=== PATIENT | male | born 1945 | race Caucasian/White ===

== ENCOUNTER 2022-12-28 08:56 | Outpatient (OUT) | payer MEDICARE, SELFPAY ==
--- NOTE | 2022-12-28 10:55 | CA_ITS ---
Patient: ABIODUN KEYES Exam Date: 12/28/2022 : 1945 Gender:M Ordering : WILLIAM GRAJEDA Admission #: [id number] Family : Order #: [id number] CLICK HERE TO VIEW EXAM ECHOCARDIOGRAM REPORT PROCEDURE: CA ECHO DOPPLER COMPLETE INDICATIONS: Pacing-induced Cardiomyopathy COMPARISON: None. DESCRIPTION: COMPLETE ECHOCARDIOGRAM Real-time transthoracic echocardiography with 2D, M-mode, spectral and color flow Doppler performed. QUALITY: Technical quality was good. LEFT VENTRICLE: Normal chamber size. Normal left ventricular wall thickness. Global left ventricular systolic function is normal. LV EF: Calculated left ventricular ejection fraction is 59% DIASTOLIC: Grade 1 diastolic dysfunction. ATRIAL SEPTUM: LEFT ATRIUM: Normal chamber size. RIGHT ATRIUM: Mild dilatation. RIGHT VENTRICLE: Normal chamber size. Normal right ventricular systolic function. Pacer wire present. TRICUSPID VALVE: Normal mobility and thickness. No stenosis with mild regurgitation. Mild pulmonary hypertension. RVSP 43 mmHg MITRAL VALVE: Normal mobility and thickness. No evidence of mitral valve stenosis. There is no mitral annular calcification. No mitral regurgitation. AORTIC VALVE: Normal trileaflet appearance. No visible sclerosis. Normal leaflet mobility. No evidence of aortic valve stenosis. No aortic regurgitation. AORTIC ROOT: Mildly dilated. Measuring 4.2cm. The ascending aorta is normal in size measuring 3.4 cm. PULMONIC VALVE: Normal thickness and mobility. No stenosis. Trivial regurgitation. PERICARDIUM: No evidence of pericardial effusion. IVC: Collapses with inspirations. Normal size. PLEURA: CONCLUSION: 1. Left ventricular systolic function is normal. LVEF is 55 to 60%. 2. Mild diastolic dysfunction. 3. Normal right ventricular size and systolic function. 4. No significant valvular dysfunction. 5. Mildly elevated right-sided pressures. RVSP is 43 mmHg. 6. Mildly dilated aortic root, measuring 4.2 cm. Adult Echocardiography Procedure Report Left Ventricle LVEDD (3.7 - 5.6 cm): 4.98 cm LVESD (2.2 - 4.0 cm): 3.79 cm LVIVS thickness (0.6 - 1.2 cm): 1.02 cm LVPW thickness (0.5 - 1.0 cm): 1.03 cm e': 0.08 m/s E - e': 7.25 LVOT Max Gradient: 4.46 mm[Hg] LVOT Area (cm2): 1.06 m/s Peak Velocity (LVOT): 1.06 m/s Mean Velocity (LVOT): 0.63 m/s LVOT Diameter 2.48 cm Left Ventricular Ejection Fraction: 59.49 % Left Atrium LA Volume Index (2D A2C): 34.38 ml/m2 Left Atrium Systolic Dimension: 4.40 cm Mitral Valve MV E to A Ratio: 0.57 Mitral Valve A-Wave Peak Velocity: 0.98 m/s Mitral Valve E-Wave Peak Velocity: 0.56 m/s Right Ventricle Aorta AO Root Diam: 4.17 cm Ascending Ao Diam: 3.38 cm Aortic Valve AoV Area (Peak Ankit): 3.97 cm2, 3.97 cm2 AoV Area (VTI): 3.91 cm2, 3.91 cm2 Peak Velocity(Antegrade Flow): 1.28 m/s Peak Gradient(Antegrade Flow): 6.56 mm[Hg] Mean Velocity(Antegrade Flow): 0.88 m/s Mean Gradient(Antegrade Flow): 3.54 mm[Hg] Velocity Time Integral: 27.72 cm Tricuspid Valve Peak Velocity (Regurgitant Flow): 3.18 m/s, 2.78 m/s, 3.02 m/s Pulmonic Valve Mean Gradient: 2.17 mm[Hg], 2.04 mm[Hg] Mean Velocity: 0.67 m/s, 0.68 m/s Peak Velocity: 1.08 m/s Peak Gradient: 5.59 mm[Hg], 3.83 mm[Hg] Right Atrium Dictated by: Topher Lucas M.D. on 12/28/2022 at 19:47 Approved by: Topher Lucas M.D. on 12/28/2022 at 19:50
== END 2022-12-28 08:57 | disposition home or self-care (01) ==
PROVIDERS: PCP Family Medicine; Visit Provider Nurse Practitioner
DX: I42.9 Cardiomyopathy, unspecified (principal); T82.897A Other specified complication of cardiac prosthetic devices, implants and grafts, initial encounter
CPT/HCPCS: 93306

== ENCOUNTER 2023-12-13 07:45 | Outpatient (OUT) | payer MEDICARE, SELFPAY ==
--- OUTSIDE RECORDS SUMMARY | 2023-12-13 07:48 | XMS_ITS | CCD ---
Author Organization [facility] Care Team Providers Care Bundle Cutter Name Role Phone MAKENNA STAPLES Attending Unavailable MAKENNA STAPLES Admitting Unavailable HOUSE, NIKITA Referring Unavailable HOUSE, NIKITA Primary Care Unavailable HOUSE, DR COLLADO Attending Unavailable HOUSE, DR COLLADO Consulting Unavailable HOUSE, DR COLLADO Primary Care Unavailable HOUSE, DR COLLADO Admitting Unavailable ANGELA, MD Edward Mckinney Attending Unavailable ANGELA, MD Edward Mckinney Attending Unavailable HOUSE, NIKITA Lopez Primary Care Unavailable HOUSE, DO NIKITA P Admitting Unavailable HOUSE, DO NIKITA Lopez Attending Unavailable HOUSE, DO NIKITA Lopez Attending Unavailable HOUSE, NIKITA P Primary Care Unavailable Chucky Cantrell MD Attending Unavailable HOUSE, NIKITA Lopez Primary Care Unavailable RUMA CABRERA Attending Unavailable RUMA CABRERA Attending Unavailable LUIS FOOTE Referring Unavailable Unavailable Primary Care Provider UnavailBRIANNA Arshad Attending Unavailable Allergies Allergy Classification Reported Allergen(s) Allergy Type Date of Onset Reaction(s) Facility (1 source) No Known Medication Allergies; Translations: [No Known Medication Allergies] Propensity to adverse reactions (disorder) [facility] Repository Medications Current Medications Medication Drug Class(es) Dates Sig (Normalized) Sig (Original) amLODIPine 2.5 mg oral tablet (3 sources) Dihydropyridine Calcium Channel Abhilash amLODIPine (Norvasc) 2.5 MG tablet Take by mouth Daily. Active atorvastatin 10 mg oral tablet (3 sources) HMG-CoA Reductase Inhibitor take 1 tablet by mouth in the morning atorvastatin (Lipitor) 10 MG tablet Take 10 mg by mouth in the morning. Active fluorouracil 50 mg/ml topical cream (2 sources) Nucleoside Metabolic Inhibitor Start: 12-11-2023 fluorouracil (Efudex) 5 % cream Indications: Actinic keratosis Apply to scalp x 14 days 40 g 12/11/2023 Active Start: 12-11-2023 fluorouracil ( Efudex) 5 % cream Indications: Actinic keratosis Apply to scalp x 14 days 40 g 12/11/2023 Active labetalol hydrochloride 100 mg oral tablet (3 sources) beta-Adrenergic Abhilash labetalo l (Normodyne) 100 MG tablet Take by mouth 2 (two) times a day. Active ramipril 1.25 mg oral capsule (3 sources) Angiotensin Converting Enzyme Inhibitor take 1 capsule by mouth in the morning ramipril (Altace) 1.25 MG capsule Take 1.25 mg by mouth in the morning. Active Rivaroxaban (Xarelto) 1 MG/ML reconstituted suspension (3 sources) Rivaroxaban (Xar elto) 1 MG/ML reconstituted suspension Take by mouth. Active Problems Problem Classification Problem Date Documented Date Episodic/Chronic Conduction disorders (2 sources) Encounter for adjustment and management of automatic implantable cardiac defibrillator; Translations: [Encounter for adjustment and management of automatic implantable cardiac defibrillator] Onset: 05-29-2023 Chronic Coronary atherosclerosis and other heart disease (1 source) Atherosclerotic heart disease of [place] coronary artery without angina pectoris; Translations: [ASHD [place] CA W/O ANGINA PECTORIS] Onset: 11-29-2021 Chronic Disorders of lipid metabolism (1 source) Hyperlipidemia, unspecified; Translations: [HYPERLIPIDEMIA UNSPECIFIED] Onset: 11-29-2021 Chronic Essential hypertension (4 sources) Essential (primary) hypertension; Translations: [ESSENTIAL PRIMARY HYPERTENSION] Onset: 11-26-2021 Chronic Hyperplasia of prostate (1 source) Benign prostatic hyperplasia without lower urinary tract symptoms; Translations: [BENIGN PROSTATIC HYPRPLASIA WO LUTS] Onset: 11-29-2021 Chronic Neoplasms of unspecified nature or uncertain behavior (2 sources) Neoplastic disease; Translations: [Neoplasm of unspecified behavior of bone, soft tissue, and skin] 12-11-2023 Episodic Other skin disorders (2 sources) Actinic keratosis; Translations: [Actinic keratosis] 12-11-2023 Episodic Other skin disorders (2 sources) Seborrheic keratosis; Translations: [Other seborrheic keratosis] 12-11-2023 Episodic Other skin disorders (2 sources) Lentiginosis; Translations: [Other melanin hyperpigmentation] 12-11-2023 Episodic Results Test Name Value Interpretation Reference Range Facility No Panel Informationon 12-10 Type of biopsy: tangential Informed consent: discussed and consent obtained Informed consent comment: The risks and benefits of the biopsy were discussed. Risks include but are not limited to bleeding, infection, scarring, pain, and nerve damage. An opportunity to ask questions prior to the procedure was permitted and all questions were answered. Patient was prepped and draped in usual sterile fashion: area cleansed with alcohol. Anesthesia: the lesion was anesthetized in a standard fashion Anesthetic: 1% lidocaine w/ epinephrine 1-100,000 buffered w/ 8.4% NaHCO3 Instrument used: DermaBlade Hemostasis achieved with: electrodesiccation Outcome: patient tolerated procedure well Outcome comment: The specimen was placed in a prelabeled formalin container to be sent for pathology Post-procedure details: sterile dressing applied and wound care instructions given Post-procedure details comment: Emphasized need to contact clinic for any signs of infection, uncontrollable bleeding, or complications. Dressing type: bandage Additional details: Photo taken yes Amount of lidocaine used: 1 cc [facility] Healthcare Office Visiton 12-06-2023 Follow-up visit [id number] Sonal Elizondo 1945 M Date Provider Department Center 12/06/2023 RUMA FRAZIER DEXTER [facility] Family History Problem Relation Age of Onset Hypertension Mother Hypertension Father Hypertension Sister Family Status - Relation Status Age at Mother Father Sister Level of Service:74675 PA OFFICE/OUTPATIENT ESTABLISHED MOD MDM 30 MIN Normal [facility] Coding Summaryon 10-23-2023 Coding Summary HTMLBase 64 YpcifmrtMKe4pGa+PGhlYWQ +UL7LLFVnK28kaKQupL1mJ4 NMTElOSywgQVBQTElOSyIgb iXjIE6trGRnYIDb IC8+QO8mQHPtSmaquRWxx5N 5jWV4T25ytb6aQTtzbOO3HN NdQaXkafakf5lbzJk0ERcoK mluOyBt JCUdzB56URP9kM69Jg82oDW dxTBlf1hxlUc4RxXdDWIcKW Y3bBlxKHtxp8DpEZDkV97kk EGyj1E7 VXGcrHvvyHNzVlLyxPQ4aI1 jRZzqlroeq6xzzcpxCed0mi 42tMTzf9K1rDP3L7ZqpaJ1S GJvbGQg YuvtzLKQjC8gyleza3ubizx bToDiUTQcDVs4GKk0VVIsyZ fvCzMiMJ01JZT4QQYeqeBdV 2FsLWFs fLnrEyW2t3P8Ot3AT3WGVng mA5EMSOHYZXdhaWZ+PC90cj 81K7XoKqoxZvk7ACWpNXO8x TY5gH9g KRQwZKvwy0G9eMP1P6MrpiI igy5om3vfHSRoJGkdR80gqL Joq1O0VWQdfUE9MPOjtFkoY iBzaG93 Oyc+MLUvmIzut6CqYdxjm4y he4erjPh1YrhoRLTikdUxyO qgHZR1c5UuIk5uWYRktGF6j LU9eS4r ImQkByU9IUrxM675BcVzbNF xNsgcA17jO9WygAH+PHRyPj p6GECklUxjHU0sH0RyAGZrg mctbGVm cGaoGK0dIXDlpoqmTHKwiW3 tZNKiQ7a1JfQqBvO1KNnxS4 JfOCDsfddhZr54nE2vShNoL gQ1PIrt E2JyboB6GXIqfHQfIHjeQUU 4Y52pg8G0JUWnGOBcCBX8tP Y5lJ4xsThmkujbkQSgeAbpv mVydGlj NRrbUFtxJ085PHGmnZyeHeQ vZGluZyBEYXRlOiAgMDgvMT MvMjAyNDwvdGQ+MWZlHIE3v WxlPSAn bPEvOBylPv6qoCvsyYczHP4 tIHTyvjrkZLZhrI0rZQOakD UycOipWI8mDMCnibxkf506G iAxMHB0 XMFmdQSkJ6PzyS0eShQqWPE sPCJrW9MrfASyBJjtK679PJ qvCqR7XIOykmFpY1FaVTEyl WduOiB0 l9C7Ps0Mv5WfqxmdK9TemVI zTmVgPhufZQk5R0EjJmqaqP I+UN22GKOdYE04WRc6AXC6v WxlPSdi NXTaY8VsuU8wZjEnMVBbZUS kOyc+PHRhYmxlIHdpZHRoPS pmUQTwVwXwoTnpRJ9rRr3iM GVyLWNv eSrqxUNjQrRdd2zbMAJmEEq jXA6pzSwlF9CjrAQ4BGPth3 f8Vw05K62tJ5HteAC+PGNvb BZ5qNW8 uR1rSfKyClD4QWymG684VbV gmWXmZtcii7csu0qziDd3Xh G9HINnwlJggVdnEHA8c9LkO b29M82q IHdpZHRoPSIxNSUiIHZhbGl vvz2qvK9hRp1+AQVazZE1xW Z2xA0iUkIjWsG1SQqhJ299Z nRvcCIv Nhkfa1lbs8kfrZm7DjNtQBG bvdLlnDmfOFK6x6CeIb53Y3 PfrOmxs0IlFva6ke93fTZkt 6Y0zSQ1 F1YbBQQbtdxkuWXdfHrwHG7 fDQGtrrpuQDWhyO3gPSUoY5 h3UqWsVbY6POuzH3SzhtG9P GJvbGQg PXImpVYQhF6jsatoh0uifbs fQfJkYMVkRFh2TAe3FKOzbG msNzHdVLT6HzC2JPP9cWZdz X8fgOui cyxpgV8lKht+FQT4kHXkcYG LPS1kNwnsnCR+FBCaAGK2sE gyVFqlITFxnW4uFPWmJ9f6V iAwLjA1 ZGsnH5HmeaS7DJGzuOUbPVY vzYBHkN0lfpgqj1cqbnzhRi OrFDMzMVz3XRo9WILuaNvrU iBsZWZ0 OnL2RJA7fKRnhU7yrXswqoh mbW4rSfv+HodipRpkWZP3FB u1U2ViTej3QZRdqIwaSI4ia GFkZGlu Pu6acElarVkiKJ5lUFSboxi kz110IfEti6pxQJKxmEUbIJ rwIZA1W78lr8X9WYBePYVbZ KC9tWJ4 gM3otXsqbbcbrKBxoNivdlV qcXvjPUdrFTksI196XGDhbN krDaUbHDt4H4SpLnp8YKKmj OohUB2b kLFtRHmoZr1vkNawsTklUD9 sQHNdznuwm628MbNqy9liWE VdfDKyVCukPER4I87bw7F0Z CMwMDAw WRO8wBJ3zV9tlOxgaxsnqYO mdDsgdmVydGljYWwtYWxpZ2 14NRJilVdlXhMohZk8K7GaQ yx2BYOe eXwgCC9obQPmNAtyPj5yuRw gqWgnTH8pKQGfnvkwl996Xh Tdx2bvKWBqsQCuKNopEES8B 56be0W9 EIYbQNXcPER0oCN3iR4fwAd nbjogbGVmdDsgdmVydGljYW weQJtuV414WILdlRceKlIvv GllbnQg WLhvRVw0X6DxSmbmtHL+PC9 3BMGwCD70iBEreKCwy1darN k7DvIfIAOiRWZ8qKoaYWttu 3JkZXIt D78dqKPwb1Q9ZWJsmOsefCA eWjOugEK8iA6vYWnptdrwg5 shyotvZeyks7ktbk50vC27X 29sIHdp ZHRoPSIzMCUiIHZhbGlnbj0 voL9eHn5+NODtbLI2dYY0iK 2vXSTeIjB9LDbrM417CuLja CIvPjxj r7fuv4uhdGm0TiV5JRGyffL kvGviVAZ0m8FiDf07V90sCH dpZHRoPSIyMCUiIHZhbGlnb u7rqD6e Ii8+OKZjoJU3tJZ7jX1fBdQ kXpU0HLdsS772VgZnpRQwNt glD66xT9RmkDB+KLLfCbo7X CBzdHls FY4lcHCqXUlkIc7qDEB3QfI wEoCdLMwdT4LoIBXqgxqiaa girMK2ERCkJPVtrK93Xh8an DogMTBw nIEYoS3kbeily0chlrvzNaH lZUPhRTe1KPf0LDWmbBulQq AaNSH4TuR5SIK8gGEccY1pf Glnbjog fJ4aA2MqUPCfveswQh32cG5 rJcSeQsG8SZmoTbx+UVVBQ0 rDKfUSE9gkYQzPUn6hHR8PC 0xBUzwv dGQ+MVJkDHL1bWqeGKnsETW pnT5pSRLeT5b0PyUrIhQ4BD scG6XwBVQlhxymYg39cE6iN iAwLjA1 SDvvD0RnqfW9ODLvhPXkKBm rISL8U04bd9I5ELBfCECnZT E7iLY7hD1zmSbwatfkeKNzg DsgdmVy gMlvLRosHVqjR600DVRnmWq wJpA7JvC4JhO7LVP7X4EqYl k4URLgxUoiSB2waWSuPDfsT s7rsAvt wNhvRQ7eTZMroanpTFFocY0 vXBTamLOluShrVO7tLRKxoe wha512YuUdNZB9GUYrbCDvK 7TikT3u BmZaVDPwNBWqX1MaxECzHMq dV235HQgvIqV6AOHqtmAuM6 SoHACukJmaSvC9d5X9Hz46L CBZZWFy czwvdGQ+CWMrWRM9wKuiCBi sDRRbpN2pBXAcM9h0YmAwLq Y2FTzlF4IfQVSyldfbOy12d U8aStPv RkO9XQnuA7SajyE6VQUajDL lJVdvYQH5H70kl6V3MORaNA MsQDF2dQT8gJ8mqUuixuqpw GVmdDsg ngJjnZcfCDweGLgiN774WXM zqUqxPh8XUBY2V5RbWvy9EK JdqPyjGA7pmACmBRxeDp4de WdodDog EO0uJUSnmcfmRROtyO0tZDG eqQOexVriZT3kCSNspayxk8 82NiUbJAD3PNYzzLEjN4Lvz Q0xRkWh DVLzVFVzJ2YhjPMrXApgA16 6VQytDnM1TQMtckQbT1XeIY KquZsiMmV2v2A7Ef8SOSpfd GQ+PC90 jv39U6TbTwejQfa1JXTuUXO 4tFZ7jY4aMCGgOLhlx1C1gL B4Z0AoqoHeqk1wk0oaJBEeX HcrU55t vZTsz7O6ILYycBQ1KKFraDk jVyUltE70Xbh+PGNvbGdyb3 NoQbzjb6ger9hxaYm7YdHjG SIgdmFs uXypRZW6q2JgKa99C32vEIu pZHRoPSIzMCUiIHZhbGlnbj 3hcD1zHr8+BCIqcFE2fUW1r X8qByUy NaD5MHdlG207VnIwhAGcRzu be9dwa5srnId8YmQuTSLbyl KsmVvdZFY0f0OjIl54B4Rcb Ryox0Gc Bed0qu24aIKax2O5uFH1Y8R wWQAhjemgqSHepOthDX5qFI IiwwyoWZUyaT5pGXVsW8n9C iAwLjA1 BUfiR1ChrxN1XOIalNMvYKD dlNGAzT8yvbjoa2synxinDm FiPFLhAJt9SIp9BKUcpEyyC iBsZWZ0 AgE0BXS5oADqbE9swHfmkrl gjX8xFdb+YFc7c4acvYRdER 9ghYN7DT99LL44uEAmw4Y5a AP5W1Dr FBOcxesxvisnzFI6WMDpXVM mzF29Qc2dkBasBa9iYZRoFA N0OQUkwGNvV1UvgG0aRiRvU DAwMDAw J1FawBXhRBhhK040XMftTfH 5XJKsrmWnY0PjNWNwsOusPn H1n8B3Jd8WNQ17TE28HB51v UEae6Q0 fZO4Q1KpSWCasazftayksOQ 5ZQUyGXBalL28Oe1yaEnhJb 5jTPXwMIB4OOIzwEAiA7Obe N4xCxTu VDWmTNEaJ0KcbXGdIPvqR87 2DMqzPrI1GXKunqOlD0BrPY NwcAlgQtX4z1R5Ci2ZDg93S Y33UK35 iAOvl7Q9dFF8L7EkEKQiwcl fpfojcOA3YNUbLJEjeG56Yb 5pnXiiHt3tMELvRYG0PYUxt HDxD4Zi vU9vHhSiJWIuIDIxE6DvhDP dPCouV414FGcpVgK8YZXkgg BaY5SrLMKrzRnyUkN5w6V5S j2WKSqg gth8R4KcWkwwpDI+LO04LRS xIQ11uCUtpIZxh8fmjVy3Xu LyOYZfRHQ6hLqpPBsli4PmQ SWfV09c bGF (more content not included)... Normal [facility] Reminder Messageson 10-09-19 Reminder Messages - From: NIKITA CAMERON DO To: [facility] Clinical Pool ([facility] [email or web address] Sent: 10/08/2023 15:40:18 EDT ! Show up: 10/08/2023 15:40:18 EDT Subject: Results Follow Up Actions: Call the patient with result(s) Due Date/Time: 10/09/2023 15:40:00 EDT Reminder Comments: looks good Results: Date Result Name Ind Value Ref Range 10/08/2023 14:22 Sodium Level 140.0 mmol/L (136.0 - 144.0) 10/08/2023 14:22 Potassium Level 4.0 mmol/L (3.6 - 5.1) 10/08/2023 14:22 Chloride Level 105 mmol/L (101 - 111) 10/08/2023 14:22 CO2 28 mmol/L (21 - 32) 10/08/2023 14:22 Anion Gap 11.0 mmol/L (5.0 - 19.0) 10/08/2023 14:22 Glucose Level 107.0 mg/dL (74.0 - 118.0) 10/08/2023 14:22 BUN 20 mg/dL (8 - 26) 10/08/2023 14:22 Creatinine Level 1.01 mg/dL (0.90 - 1.30) 10/08/2023 14:22 BUN/Creat Ratio ((H)) 19.8 (4.6 - 16.2) 10/08/2023 14:22 eGFR AA >60 mL/min/1.73m2 10/08/2023 14:22 eGFR Non AA >60 mL/min/1.73m2 10/08/2023 14:22 Calcium Level 9.1 mg/dL (8.9 - 10.3) 10/08/2023 14:22 Bili Total 1.1 mg/dL (0.3 - 1.2) 10/08/2023 14:22 Alk Phos 53 IU/L (32 - 91) 10/08/2023 14:22 AST/SGOT 17 IU/L (15 - 41) 10/08/2023 14:22 ALT/SGPT 21.0 IU/L (17.0 - 63.0) 10/08/2023 14:22 Protein Total 7.7 gm/dL (6.5 - 8.1) 10/08/2023 14:22 Albumin Level 4.6 gm/dL (3.5 - 5.0) 10/08/2023 14:22 Globulin 3.1 gm/dL (1.5 - 4.3) 10/08/2023 14:22 A/G Ratio 1.4 (1.4 - 2.6) 10/08/2023 14:22 Osmolality 282 mOsm/L 10/08/2023 14:22 PSA Screen 3.24 ng/mL (0.00 - 4.00) 10/08/2023 14:22 WBC 8.1 x103/mcL (3.5 - 10.5) 10/08/2023 14:22 RBC ((H)) 5.52 x106/mcL (3.70 - 5.30) 10/08/2023 14:22 Hgb 16.3 gm/dL (11.8 - 17.7) 10/08/2023 14:22 Hct 48.7 % (34.8 - 51.9) 10/08/2023 14:22 MCV 88 fL (81 - 100) 10/08/2023 14:22 MCH 30 pg (24 - 34) 10/08/2023 14:22 MCHC 33 gm/dL (26 - 37) 10/08/2023 14:22 RDW 14.4 % (11.5 - 15.0) 10/08/2023 14:22 Platelet 303 x103/mcL (138 - 427) 10/08/2023 14:22 MPV 7.5 fL (6.3 - 10.2) 10/08/2023 14:22 Auto Neut % 68 % (44 - 88) 10/08/2023 14:22 Auto Lymph % 20 % (14 - 48) 10/08/2023 14:22 Auto [place] % 10 % (1 - 12) 10/08/2023 14:22 Auto Eos % 2.4 % (0.9 - 4.0) 10/08/2023 14:22 Auto Baso % 0.4 % (0.2 - 2.0) 10/08/2023 14:22 Neut Abs# 5.5 x103/mcL (1.5 - 9.2) 10/08/2023 14:22 Lymph Abs# 1.6 x103/mcL (1.3 - 2.9) 10/08/2023 14:22 [place] Abs# 0.8 x103/mcL (0.0 - 0.8) 10/08/2023 14:22 Eos Abs# 0.2 x103/mcL (0.0 - 0.4) 10/08/2023 14:22 Baso Abs# 0.0 x103/mcL (0.0 - 0.2) pt notified Normal [facility] .Auto Diff 1on 10-08-2023 Auto [place] % 10 % Normal 1-12 [facility] Comment on above: Performed By: #### 7 [id number] #### [facility] (DEFAULT) [address] [place] [address] Baso Abs# 0.0 x10 Normal 0.0-0.2 [facility] Comment on above: Performed By: #### 7 [id number], [id number], [id number], [id number] #### [facility] (DEFAULT) [address] [place] [address] Basophils/100 WBC (Bld) 0.4 % Normal 0.2-2.0 [facility] Comment on above: Performed By: #### 7 [id number], [id number], [id number] #### [facility] (DEFAULT) [address] [place] [address] Eos Abs# 0.2 x10 Normal 0.0-0.4 [facility] Comment on above: Performed By: #### 7 [id number], [id number], [id number], [id number] #### [facility] (DEFAULT) [address] [place] [address] 89628 Eosinophils/100 WBC (Bld) 2.4 % Normal 0.9-4.0 [facility] Comment on above: Performed By: #### 7 [id number], [id number], [id number], [id number] #### [facility] (DEFAULT) [address] [place] [address] Lymph Abs# 1.6 x10 Normal 1.3-2.9 [facility] Comment on above: Performed By: #### 7 [id number], [id number], [id number], [id number] #### [facility] (DEFAULT) [address] [place] [address] Lymphocytes/100 WBC (Bld) 20 % Normal 14-48 [facility] Comment on above: Performed By: #### 7 [id number], [id number], [id number], [id number] #### [facility] (DEFAULT) [address] [place] [address] [place] Abs# 0.8 x10 Normal 0.0-0.8 [facility] Comment on above: Performed By: #### 7 [id number], [id number], [id number], [id number] #### [facility] (DEFAULT) [address] [place] [address] Neut Abs# 5.5 x10 Normal 1.5-9.2 [facility] Comment on above: Performed By: #### 7 [id number], [id number], [id number], [id number] #### [facility] (DEFAULT) [address] [place] [address] Neutrophils/100 WBC (Bld) 68 % Normal 44-88 [facility] Comment on above: Performed By: #### 7 [id number], [id number], [id number], [id number] #### [facility] (DEFAULT) [address] [place] [address] CBC w/ Auto Diffon 4 Erythrocyte distribution width (RBC) [Ratio] 14.4 % Normal 11.5-15.0 [facility] Comment on above: Performed By: #### 7 [id number], [id number], [id number], [id number] #### [facility] (DEFAULT) [address] [place] [address] Hematocrit (Bld) [Volume fraction] 48.7 % Normal 34.8-51.9 [facility] Comment on above: Performed By: #### 7 [id number], [id number], [id number], [id number] #### [facility] (DEFAULT) [address] [place] [address] Hemoglobin (Bld) [Mass/Vol] 16.3 g/dL Normal 11.8-17.7 [facility] Comment on above: Performed By: #### 7 [id number], [id number], [id number], [id number] #### [facility] (DEFAULT) [address] [place] [address] Man Diff? Auto Invalid Interpretation Code [facility] Comment on above: Performed By: #### 7 [id number], [id number], [id number], [id number] #### [facility] (DEFAULT) [address] [place] [address]17 MCH (RBC) [Entitic mass] 30 pg Normal 24-34 [facility] Comment on above: Performed By: #### 7 [id number], [id number], [id number], [id number] #### [facility] (DEFAULT) [address] [place] [address] 98968 MCHC (RBC) [Mass/Vol] 33 g/dL Normal 26-37 [facility] Comment on above: Performed By: #### 7 [id number], [id number], [id number], [id number] #### [facility] (DEFAULT) [address] [place] [address] 78975 MCV (RBC) [Entitic vol] 88 fL Normal 81-100 [facility] Comment on above: Performed By: #### 7 [id number], [id number], [id number], [id number] #### [facility] (DEFAULT) [address] [place] [address] Platelet 303 x10 Normal 138-427 [facility] Comment on above: Performed By: #### 7 [id number], [id number], [id number], [id number] #### [facility] (DEFAULT) [address] [place] [address] 20390 Platelet mean volume (Bld) [Entitic vol] 7.5 fL Normal 6.3-10.2 [facility] Comment on above: Performed By: #### 7 [id number], [id number], [id number], [id number] #### [facility] (DEFAULT) [address] [place] [address] 27290 RBC 5.52 x10 High 3.70-5.30 [facility] Comment on above: Performed By: #### 7 [id number], [id number], [id number], [id number] #### [facility] (DEFAULT) [address] [place] [address] 31898 WBC 8.1 x10 Normal 3.5-10.5 [facility] Comment on above: Performed By: #### 7 356310, [id number], [id number], [id number] #### [facility] (DEFAULT) [address] [place] [address] CMP Standardon 10-08-2023 eGFR Non AA >60 Invalid Interpretation Code [facility] Comment on above: Performed By: #### 7 [id number], [id number], [id number], [id number] #### [facility] (DEFAULT) [address] [place] [address] eGFR AA >60 Invalid Interpretation Code [facility] Comment on above: Performed By: #### 7 [id number], [id number], [id number], [id number] #### [facility] (DEFAULT) [address] [place] [address] Albumin [Mass/Vol] 4.6 g/dL Normal 3.5-5.0 [facility] Comment on above: Performed By: #### 7 607907, [id number], [id number], 7494821 #### [facility] (DEFAULT) [address] [place] [address] Albumin/Globulin [Mass ratio] 1.4 {ratio} Normal 1.4-2.6 [facility] Comment on above: Performed By: #### 7 574639, [id number], [id number], 6998870 #### [facility] (DEFAULT) [address] [place] [address] 47299 Alk Phos 53 IU/L Normal 32-91 [facility] Comment on above: Performed By: #### 7 809308, 84985061, [id number], [id number] #### [facility] (DEFAULT) [address] [place] [address] 25167 ALT [Catalytic activity/Vol] 21.0 U/L Normal 17.0-63.0 [facility] Comment on above: Performed By: #### 7 431650, [id number], [id number], 3809105 #### [facility] (DEFAULT) [address] [place] [address] Anion gap [Moles/Vol] 11.0 mmol/L Normal 5.0-19.0 [facility] Comment on above: Performed By: #### 7 096719, 91803227, [id number], 3482201 #### [facility] (DEFAULT) [address] [place] [address] 56790 AST [Catalytic activity/Vol] 17 U/L Normal 15-41 [facility] Comment on above: Performed By: #### 7 540547, 95371209, [id number], 5162598 #### [facility] (DEFAULT) [address] [place] [address] 07348 Bili Total 1.1 mg/dL Normal 0.3-1.2 [facility] Comment on above: Performed By: #### 7 272464, 24209573, [id number], 0369336 #### [facility] (DEFAULT) [address] [place] [address] 38735 Calcium [Mass/Vol] 9.1 mg/dL Normal 8.9-10.3 [facility] Comment on above: Performed By: #### 7 806956, 74067436, [id number], 1627955 #### [facility] (DEFAULT) [address] [place] [address] 55132 Chloride [Moles/Vol] 105 mmol/L Normal 101-111 [facility] Comment on above: Performed By: #### 7 332489, 79822342, [id number], 1701606 #### [facility] (DEFAULT) [address] [place] [address] 17235 CO2 [Moles/Vol] 28 mmol/L Normal 21-32 [facility] Comment on above: Performed By: #### 7 063286, 04934043, [id number], 2713476 #### [facility] (DEFAULT) [address] [place] [address] 63543 Creatinine [Mass/Vol] 1.01 mg/dL Normal 0.90-1.30 [facility] Comment on above: Performed By: #### 7 735834, 60165361, [id number], 8059722 #### [facility] (DEFAULT) [address] [place] [address] 46839 Globulin (S) [Mass/Vol] 3.1 g/dL Normal 1.5-4.3 [facility] Comment on above: Performed By: #### 7 671974, 55185106, [id number], 2771894 #### [facility] (DEFAULT) [address] [place] [address] 03545 Glucose [Mass/Vol] 107.0 mg/dL Normal 74.0-118.0 [facility] Comment on above: Performed By: #### 7 681586, 21203777, [id number], 1651130 #### [facility] (DEFAULT) [address] [place] [address] 84631 Osmolality 282 mOsm/L Invalid Interpretation Code [facility] Comment on above: Performed By: #### 7 352310, 27796033, [id number], 8917615 #### [facility] (DEFAULT) [address] [place] [address] 01793 Potassium [Moles/Vol] 4.0 mmol/L Normal 3.6-5.1 [facility] Comment on above: Performed By: #### 7 125421, 71474623, [id number], 4568268 #### [facility] (DEFAULT) [address] [place] [address] 73565 Protein [Mass/Vol] 7.7 g/dL Normal 6.5-8.1 [facility] Comment on above: Performed By: #### 7 539947, 13428203, [id number], 3538453 #### [facility] (DEFAULT) [address] [place] [address] 66421 Sodium [Moles/Vol] 140.0 mmol/L Normal 136.0-144.0 [facility] Comment on above: Performed By: #### 7 769372, 01798854, [id number], 5564908 #### [facility] (DEFAULT) [address] [place] [address] 31748 Urea nitrogen [Mass/Vol] 20 mg/dL Normal 8-26 [facility] Comment on above: Performed By: #### 7 768363, 94241411, [id number], 1052206 #### [facility] (DEFAULT) [address] [place] [address] Urea nitrogen/Creatinine [Mass ratio] 19.8 mg/mg High 4.6-16.2 [facility] Comment on above: Performed By: #### 7 716380, 48514370, [id number], 9336534 #### [facility] (DEFAULT) [address] [place] [address] 51620 PSA Screenon 10-08-2023 PSA Screen 3.24 ng/mL Normal 0.00-4.00 [facility] Comment on above: Result Comment: [employer] Clinical System (Chemiluminescence) Values obtained with different assay methods or kits cannot be used interchangeably. Results cannot be interpreted as absolute evidence of the presence or absence of malignant disease. Performed By: #### 7 801253, 45814505, [id number], 0688397 #### [facility] (DEFAULT) [address] [place] [address] 33135 Echocardiogramon 06-07-2023 Echocardiography [id number] [facility] Office Visiton 06-07-2023 Follow-up visit [id number] Sonal Elizondo 1945 M Date Provider Department Center 06/07/2023 RUMA FRAZIER [facility] Family History Problem Relation Age of Onset Hypertension Mother Hypertension Father Hypertension Sister Family Status - Relation Status Age at Mother Father Sister Level of Service:31154 PA OFFICE/OUTPATIENT ESTABLISHED MOD MDM 30 MIN Reason for Visit and Comments: Hypertension [167826] Atrial Fibrillation [80] Normal [facility] Patient Handouton 04-19-2023 Patient Handout [id number] TGTIFF [facility] CBC AUTO DIFFon 11-26-2021 BASO # 0.0 103/ul Normal 0.0-0.1 [facility] Comment on above: Performed By: #### C BC #### [facility] [address] [address] [address] Constance White Basophils/100 WBC (Bld) 0.2 % Normal 0.2-2.0 [facility] Comment on above: Performed By: #### C BC #### [facility] [address] [place] [address] Dr. Constance White EO # 0.2 103/ul Normal 0.0-0.7 [facility] Comment on above: Performed By: #### C BC #### [facility] [address] [place] [address] Dr. Constance White Eosinophils/100 WBC (Bld) 2.4 % Normal 0.9-7.0 [facility] Comment on above: Performed By: #### C BC #### [facility] [address] [place] [address] Dr. Constance White Erythrocyte distribution width (RBC) [Ratio] 14.6 % Normal 11.0-15.0 [facility] Comment on above: Performed By: #### C BC #### [facility] [address] [place] [address] Dr. Constance White Hematocrit (Bld) [Volume fraction] 45.1 % Normal 42.0-54.0 [facility] Comment on above: Performed By: #### C BC #### [facility] [address] [place] [address] Dr. Constance White Hemoglobin (Bld) [Mass/Vol] 15.1 g/dL Normal 14.0-18.0 [facility] Comment on above: Performed By: #### C BC #### [facility] [address] [place] [address] Dr. Constance White IG # 0.03 10e3/ul Normal 0.00-0.03 [facility] Comment on above: Performed By: #### C BC #### [facility] [address] [place] [address] Dr. Constance White IG % 0.3 % Normal 0.0-0.5 [facility] Comment on above: Performed By: #### C BC #### [facility] [address] [place] [address] Dr. Constance White LYMPH # 2.1 103/ul Normal 1.2-3.8 [facility] Comment on above: Performed By: #### C BC #### [facility] [address] [place] [address] Dr. Constance White Lymphocytes/100 WBC (Bld) 23.2 % Normal 20.5-60.0 [facility] Comment on above: Performed By: #### C BC #### [facility] [address] [place] [address] Dr. Constance White MANUAL DIFF REQ NO Normal [facility] Comment on above: Performed By: #### C BC #### [facility] [address] [place] [address] Dr. Constance White MCH (RBC) [Entitic mass] 29.4 pg Normal 25.9-34.0 [facility] Comment on above: Performed By: #### C BC #### [facility] [address] [place] [address] Dr. oCnstance White MCHC (RBC) [Mass/Vol] 33.5 g/dL Normal 29.9-35.2 [facility] Comment on above: Performed By: #### C BC #### [facility] [address] [place] [address] Dr. Constance White MCV (RBC) [Entitic vol] 87.7 fL Normal 80.0-94.0 [facility] Comment on above: Performed By: #### C BC #### [facility] [address] [place] [address] Dr. Constance White MONO # 0.9 103/ul Critically high 0.3-0.8 [facility] Comment on above: Performed By: #### C BC #### [facility] [address] [place] [address] Dr. Constance White Monocytes/100 WBC (Bld) 9.5 % Normal 1.7-12.0 [facility] Comment on above: Performed By: #### C BC #### [facility] [address] [place] [address] Dr. Constance White NEUT # 5.9 103/ul Normal 1.4-6.5 [facility] Comment on above: Performed By: #### C BC #### [facility] [address] [place] [address] Dr. Constance White Neutrophils/100 WBC (Bld) 64.4 % Normal 43.0-75.0 [facility] Comment on above: Performed By: #### C BC #### [facility] [address] [place] [address] Dr. Constance White Platelet mean volume (Bld) [Entitic vol] 9.4 fL Critically low 9.5-13.5 [facility] Comment on above: Performed By: #### C BC #### [facility] [address] [place] [address] Dr. Constance White PLT 270 103/ul Normal 150-450 [facility] Comment on above: Performed By: #### C BC #### [facility] [address] [place] [address] Dr. Constance White RBC 5.14 106/ul Normal 4.70-6.10 [facility] Comment on above: Performed By: #### C BC #### [facility] [address] [place] [address] Dr. Constance White WBC 9.2 103/ul Normal 4.0-11.0 [facility] Comment on above: Performed By: #### C BC #### [facility] [address] [place] [address] Dr. Constance White LIPID PROFILEon 11-26-2021 CHOL-HDL RATIO NORM SEE BELOW Normal [facility] Comment on above: Result Comment: 3.3 - 4.4 LOW RISK 4.4 - 7.1 AVERAGE RISK 7.1 - 11.0 MODERATE RISK >11.0 HIGH RISK Performed By: #### C MP, LIPID #### [facility] [address] [place] [address] Dr. Constance White Cholesterol [Mass/Vol] 118 mg/dL Normal <=200 [facility] Comment on above: Performed By: #### C MP, LIPID #### [facility] [address] [place] [address] Dr. Constance White Cholesterol in HDL [Mass/Vol] 26 mg/dL Critically low 40-60 [facility] Comment on above: Performed By: #### C MP, LIPID #### [facility] [address] [address] [address] Constance White Cholesterol in LDL [Mass/Vol] 63.0 mg/dL Normal [facility] Comment on above: Performed By: #### C MP, LIPID #### [facility] [address] [address] [address] Constance White Cholesterol.total/Ch olesterol in HDL [Mass ratio] 4.5 {ratio} Normal [facility] Comment on above: Performed By: #### C MP, LIPID #### [facility] [address] [place] [address] Dr. Constance White HDL NORMAL > or = 60 mg/dl - LO W CARDIOVASCULAR RISK <40 mg/dl - HIGH CARDIOVASCULAR RISK Normal [facility] Comment on above: Performed By: #### C MP, LIPID #### [facility] [address] [place] [address] Dr. Constance White LDL CALC NORMAL SEE BELOW Normal [facility] Comment on above: Result Comment: <100 mg/dl OPTIMAL 100 - 129 mg/dl NEAR OR ABOVE OPTIMAL 130 - 159 mg/dl BORDERLINE HIGH 160 - 189 mg/dl HIGH >190 mg/dl VERY HIGH Performed By: #### C MP, LIPID #### [facility] [address] [place] [address] Dr. Constance White Triglyceride [Mass/Vol] 145 mg/dL Normal <=150 [facility] Comment on above: Performed By: #### C MP, LIPID #### [facility] [address] [address] [address] Constance White VLDL CALC 29.0 mg/dL Normal [facility] Comment on above: Performed By: #### C MP, LIPID #### [facility] [address] [address] [address] Constance White PROF 14(COMP METB)on 022 Albumin [Mass/Vol] 3.9 g/dL Normal 3.4-5.0 [facility] [place] Comment on above: Performed By: #### C MP, LIPID #### [facility] [address] [address] [address] Constance White Albumin/Globulin [Mass ratio] 1.3 {ratio} Normal [facility] Comment on above: Performed By: #### C MP, LIPID #### [facility] [address] [address] [address] Constance White ALP [Catalytic activity/Vol] 58 U/L Normal 46-116 [facility] Comment on above: Performed By: #### C MP, LIPID #### [facility] [address] [address] [address] Constance White ALT [Catalytic activity/Vol] 27 U/L Normal 16-63 [facility] Comment on above: Performed By: #### C MP, LIPID #### [facility] [address] [address] [address] Constance White Anion gap [Moles/Vol] 10.1 mmol/L Normal [facility] Comment on above: Performed By: #### C MP, LIPID #### [facility] [address] [address] [address] Constance White AST [Catalytic activity/Vol] 16 U/L Normal 15-37 [facility] Comment on above: Performed By: #### C MP, LIPID #### [facility] [address] [address] [address] Constance White Bilirubin [Mass/Vol] 1.0 mg/dL Normal 0.2-1.0 [facility] Comment on above: Performed By: #### C MP, LIPID #### [facility] [address] [address] [address] Constance White Calcium [Mass/Vol] 8.7 mg/dL Normal 8.5-10.1 [facility] Comment on above: Performed By: #### C MP, LIPID #### [facility] [address] [address] [address] Constance White Chloride [Moles/Vol] 104 mmol/L Normal 98-107 [facility] Comment on above: Performed By: #### C MP, LIPID #### [facility] [address] [address] [address] Constance White CO2 [Moles/Vol] 30.1 mmol/L Normal 21.0-32.0 [facility] Comment on above: Performed By: #### C MP, LIPID #### [facility] [address] [address] [address] Constance White Creatinine [Mass/Vol] 1.09 mg/dL Normal 0.70-1.30 [facility] Comment on above: Performed By: #### C MP, LIPID #### [facility] [address] [address] [address] Constance White EGFR-AF TURKISH >60 Normal >=60 [facility] Comment on above: Performed By: #### C MP, LIPID #### [facility] [address] [address] [address] Constance White EGFR-NON AF TURKISH >60 Normal >=60 [facility] Comment on above: Performed By: #### C MP, LIPID #### [facility] [address] [address] [address] Constance White Globulin (S) [Mass/Vol] 3.0 g/dL Normal [facility] Comment on above: Performed By: #### C MP, LIPID #### [facility] [address] [address] [address] Constance White Glucose [Mass/Vol] 126 mg/dL Critically high 74-106 [facility] Comment on above: Performed By: #### C MP, LIPID #### [facility] [address] [address] [address] Constance White Potassium [Moles/Vol] 4.2 mmol/L Normal 3.5-5.1 [facility] Comment on above: Performed By: #### C MP, LIPID #### [facility] [address] [address] [address] Constance White Protein [Mass/Vol] 6.9 g/dL Normal 6.4-8.2 [facility] [place] Comment on above: Performed By: #### C MP, LIPID #### [facility] [address] [place], [place] [address] Dr. Constance White Sodium [Moles/Vol] 140 mmol/L Normal 136-145 [facility] [place] Comment on above: Performed By: #### C MP, LIPID #### [facility] [address] [place], [place] [address] Dr. Constance White Urea nitrogen [Mass/Vol] 18.0 mg/dL Normal 7.0-18.0 [facility] Comment on above: Performed By: #### C MP, LIPID #### [facility] [address] [place], [place] [address] Dr. Constance White Urea nitrogen/Creatinine [Mass ratio] 16.5 mg/mg Normal [facility] Comment on above: Performed By: #### C MP, LIPID #### [facility] [address] [address] [address] Constance White Patient Educationon 02-29-20 Patient Education Urology Benign Prostatic Hyperplasia Benign prostatic hyperplasia (BPH) is an enlarged prostate gland that is caused by the normal aging process and not by cancer. The prostate is a walnut-sized gland that is involved in the production of semen. It is located in front of the rectum and below the bladder. The bladder stores urine and the urethra is the tube that carries the urine out of the body. The prostate may get bigger as a man gets older. An enlarged prostate can press on the urethra. This can make it harder to pass urine. The build-up of urine in the bladder can cause infection. Back pressure and infection may progress to bladder damage and kidney (renal) failure. What are the causes? This condition is part of a normal aging process. However, not all men develop problems from this condition. If the prostate enlarges away from the urethra, urine flow will not be blocked. If it enlarges toward the urethra and compresses it, there will be problems passing urine. What increases the risk? This condition is more likely to develop in men over the age of 50 years. What are the signs or symptoms? Symptoms of this condition include: ? Getting up often during the night to urinate. ? Needing to urinate frequently during the day. ? Difficulty starting urine flow. ? Decrease in size and strength of your urine stream. ? Leaking (dribbling) after urinating. ? Inability to pass urine. This needs immediate treatment. ? Inability to completely empty your bladder. ? Pain when you pass urine. This is more common if there is also an infection. ? Urinary tract infection (UTI). How is this diagnosed? This condition is diagnosed based on your medical history, a physical exam, and your symptoms. Tests will also be done, such as: ? A post-void bladder scan. This measures any amount of urine that may remain in your bladder after you finish urinating. ? A digital rectal exam. In a rectal exam, your health care provider checks your prostate by putting a lubricated, gloved finger into your rectum to feel the back of your prostate gland. This exam detects the size of your gland and any abnormal lumps or growths. ? An exam of your urine (urinalysis). ? A prostate specific antigen (PSA) screening. This is a blood test used to screen for prostate cancer. ? An ultrasound. This test uses sound waves to electronically produce a picture of your prostate gland. Your health care provider may refer you to a specialist in kidney and prostate diseases (urologist). How is this treated? Once symptoms begin, your health care provider will monitor your condition (active surveillance or watchful waiting). Treatment for this condition will depend on the severity of your condition. Treatment may include: ? Observation and yearly exams. This may be the only treatment needed if your condition and symptoms are mild. ? Medicines to relieve your symptoms, including: ? Medicines to shrink the prostate. ? Medicines to relax the muscle of the prostate. ? Surgery in severe cases. Surgery may include: ? Prostatectomy. In this procedure, the prostate tissue is removed completely through an open incision or with a laparoscope or robotics. ? Transurethral resection of the prostate (TURP). In this procedure, a tool is inserted through the opening at the tip of the penis (urethra). It is used to cut away tissue of the inner core of the prostate. The pieces are removed through the same opening of the penis. This removes the blockage. ? Transurethral incision (TUIP). In this procedure, small cuts are made in the prostate. This lessens the prostate's pressure on the urethra. ? Transurethral microwave thermotherapy (TUMT). This procedure uses microwaves to create heat. The heat destroys and removes a small amount of prostate tissue. ? Transurethral needle ablation (TUNA). This procedure uses radio frequencies to destroy and remove a small amount of prostate tissue. ? Interstitial laser coagulation (ILC). This procedure uses a laser to destroy and remove a small amount of prostate tissue. ? Transurethral electrovaporization (TUVP). This procedure uses electrodes to destroy and remove a small amount of prostate tissue. ? Prostatic urethral lift. This procedure inserts an implant to push the lobes of the prostate away from the urethra. Follow these instructions at home: ? Take wzob-xoe-fnhdfzl and prescription medicines only as told by your health care provider. ? Monitor your symptoms for any changes. Contact your health care provider with any changes. ? Avoid drinking large amounts of liquid before going to bed or out in public. ? Avoid or reduce how much caffeine or alcohol you drink. ? Give yourself time when you urinate. ? Keep all follow-up visits as told by your health care provider. This is important. Contact a health care provider if: ? You have unexplained back pain. ? Your symptoms do not get better with treatment. ? You d (more content not included)... Normal [facility] Urology Office/Clinic Noteon 02-28-2021 Urology Office/Clinic Note Chief Complaint 1 year with PSA HPI Staff Pt is here for 1 year f/u with PSA. Previous dx of BPH with obstruction/ LUTS. Current PSA done 12/06/20 is 3.63 and previous done 12/03/19 was 2.70. Dysuria: no Incomplete bladder emptying: no Hematuria: no Frequency: no Urgency: no Nocturia: pt states he rarely gets up Stream: steady stream moderate Leaking: no Post void dripping: no Wearing pads/ Depends: no Urge incontinence: no Stress incontinence: no Incontinence without Sensory Awareness: no Abdominal pain: no Flank pain: no Sexual complaints: no History of Present Illness Reviewed UA and PSA. There have been no associated fever, chills, flank pain or blood in the urine. Pt. denies any pain/burning with urination at this time. Review of Systems PHQ Score Initial Depression Screen Score: 0 ROS - Provider Constitutional: denies weight loss, denies hot flashes. Eyes: denies eye problems. Gastrointestinal: denies nausea, denies vomiting. Cardiovascular: denies chest pain or angina. Integumentary: no dryness Musculoskeletal: denies musculoskeletal symptoms. ENMT: denies otolaryngeal symptoms. Respiratory: no shortness of breath. Heme/Lymph: denies easy bleeding tendency, denies easy bruising tendency. Psychiatric: no confusion, no anxiety. Genitourinary: See HPI. Physical Exam Vitals & Measurements HR: 70(Peripheral) RR: 16 BP: 161/77 HT: 185.4 cm HT: 185.4 cm WT: 99 kg WT: 99.0 kg BMI: 28.8 General Appearance: alert, no distress, well nourished, well developed male. Genitourinary: normal scrotum, normal testes, normal urethra, normal epididymis, normal vas deferens/spermatic cord. Flank Pain: none. Bladder: nonpalpable. Prostate: normal prostate, estimated weight 35 gms, no hard nodule observed. Assessment/Plan 1. Elevated PSA (R97.20: Elevated prostate specific antigen [PSA]) S/p trus/bx 12/2016. Current PSA drawn on 12/06/20 - 3.63 vs. 2.70 in 11/2019. Unable to go forward with a MRI due to pacemaker. Will continue to monitor levels at this time and pt. understands that a repeat bx may be needed if PSA continues to rise. All questions/concerns were discussed. Pt. to call the office if heencounters any issues prior. Pt. acknowledges understanding. 2. BPH with obstruction/lower urinary tract symptoms (N40.1: Benign prostatic hyperplasia with lower urinary tract symptoms) Pt. is not on any BPH meds. at this time and is doing well overall w/ his urination. Emptying well, steady stream. UA today shows no signs of blood nor infection. 3. 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 I have reviewed the previous health record information and history for this pt. from Dr. Goodman. Follow-up With When Contact Information ANGELA AU, Edward Mckinney, URL [address] [place] [address]- [phone] Additional Instructions: 1yr. psa Patient Education Benign Prostatic Hyperplasia I, Tootie Quintana , personally scribed for Dr. Goodman on 02/28/2021 12:18:16. . Documentation recorded by the scribe, Tootie Quintana, accurately reflects the services(s) I performed and decisions made by me. Authenticated by Dr. Goodman on 02/28/2021 12:19:10. Problem List/Past Medical History Ongoing Anticoagulated BPH with obstruction/lower urinary tract symptoms Elevated PSA Enlarged prostate Former smoker Prostate nodule Historical Hyperlipidemia Hypertension Procedure/Surgical History Transrectal biopsy of prostate using ultrasound (US) guidance (12/2016), Cystoscopy (08/03/2010), Hydrocelectomy (01/19/2009), Correction of hammer toe, Excision of bunion, Implantation of cardiac pacemaker, Tonsillectomy. Medications Altace, 10 mg, Oral, Daily Eliquis 5 mg oral tablet, Oral, BID labetalol, 100 mg, Oral, Daily Lipitor, Oral, Daily Norvasc, 10 mg, Oral, Daily Allergies No Known Medication Allergies Social History Alcohol 1-2 times per month, 12/11/2018 Substance Abuse - Denies Substance Abuse, 12/11/2018 Tobacco - Denies Tobacco Use, 12/20/2018 Former smoker, quit more than 30 days ago Tobacco Use:. Stopped age 41 Years., 12/11/2018 Family History Hypertension: Mother. Immunizations Vaccine Date Status Comments SARS-CoV-2 (COVID-19) mRNA BNT-162b2 vax 2020 Recorded Pt is fully vaccinated with the booster. Lab Results Test Name Test Result Date/Time PSA, External 3.63 ng/mL 12/06/2020 13:10 EDT PSA, External 2.70 ng/mL 12/03/2019 14:13 EDT PSA, External 2.56 ng/mL 12/10/2018 06:47 EDT Ambulatory Point of Care Results Bilirubin Urine Dipstick: Negative (02/28/21 11:26:00) Blood Urine Dipstick: Negative (02/28/21 11:26:00) Glucose Urine Dipstick: Negative (02/28/21 11:26:00) Ketones Urine Dipstick: Negative (02/28/21 11:26:00) Leukocytes Urine Dipstick: Negative (02/28/21 11:26:00) Nitrite Urine Dipstick: Negative (02/28/21 11:26:00) Prot (more content not included)... Normal [facility] Comment on above: Result Comment: Elec tronically Signed By: Edward GOODMAN MD\.br\Date and Time Signed: 02/28/21 12:19 EST\.br\Electronically Co-Signed By: Tootie Quintana MA\.br\Date and Time Co-Signed: 02/28/21 12:18 EST Cardiovascular Lab Reporton 12-08-2020 Cardiovascular Lab Report [facility] Patient Name: Sonal Elizondo [facility] MR #: [id number] Physician: Topher Bustamante of [facility] Service Date: 12/08/2020 Division of Birthdate: 1945 Cardiology Room #: CC [facility] Cardiovascular Services [place] [id number] Cardiovascular Laboratory Report INDICATION: The patient is a 75-year-old man, who was evaluated recently in Cardiology Clinic because of episodes of nonsustained VT on stress testing. He was referred for cardiac catheterization. PROCEDURES: 1. Bilateral selective coronary angiography from the right femoral access. 2. Limited right common femoral angiography. METHODS: Procedure was explained to the patient with risks and benefits. He signed the informed consent. He was brought to dental lab technician in a fasting state. Modified Andrea's test was not favorable on both sides. Therefore, we opted for femoral access. Micropuncture technique was used for access in the right common femoral artery. Inner cannula angiography was performed followed by upsizing to a 6-Canadian x 11 cm sheath. Bilateral selective coronary angiography was then performed using 6-Canadian JL4 and JR4 diagnostic catheters. Catheters were removed. Procedure was concluded. Manual compression was applied for hemostasis. He tolerated the procedure well. He will be observed for 6 hours and then discharged to home. TOTAL SEDATION TIME: 50 minutes. TOTAL FLUORO TIME: 3.04 minutes. TOTAL AIR KERMA: 476 mGy. TOTAL CONTRAST VOLUME: 25 mL. HEMODYNAMICS: AO 131/72, mean 97. CORONARY ANGIOGRAPHY: This is a right dominant circulation. Left main: This arises from left coronary cusp. It bifurcates into left anterior descending and circumflex vessels. The left main is free of disease. Left anterior descending: This is a large vessel and gives rise to multiple diagonal branches. LAD has calcifications in its proximal to mid segment. However, there are no obstructive lesions. There is a mild disease in the ostial to proximal segment of the LAD. The distal LAD appears free of any significant disease. Circumflex vessel: This is a large and nondominant vessel. It gives rise to multiple obtuse marginal branches. The circumflex has minimal disease. Right coronary artery: This arises from the right coronary cusp. It is a large and dominant vessel. It has mild calcifications throughout its mid segment. There is mild disease, but no obstructive lesions. Limited right common femoral angiography: This showed access to be in the right common femoral artery. There were heavy calcifications in the proximal to mid right common femoral artery, but no obstructive lesions. SUMMARY OF THE FINDINGS: Mild calcific 3-vessel coronary artery disease with no obstructive lesions. RECOMMENDATIONS: Medical therapy and follow up in Cardiology Clinic with Dr. Luis Foote. Electronically Signed by: Topher Lucas M.D. 12/09/2020 10:17 P Topher Lucas M.D. Date Dict: 12/08/2020/12:21 P/Topher Lucas M.D. Date Trans: 12/08/2020 01:28 P/amalia [id number] cc: Nikita Cameron D.O. [address] [place] [address] [facility] [address] [facility] Encounters Encounter Date Encounter Type Care Provider Facility Start: 12-11-2023 End: 12-11-2023 Bamboo flowsheet Brianna Benavides MD Work Phone: [facility] Start: 12-11-2023 End: 12-11-2023 Bamboo flowsheet Brianna Benavides MD Work Phone: [facility] Start: 12-11-2023 End: 12-11-2023 Office outpatient visit 15 minutes Brianna Benavides MD Work Phone: [facility] Comment on above: Seborrheic keratosis (Primary Dx); Actinic keratosis; Lentigines; Neoplasm of unspecified behavior of bone, soft tissue, and skin Start: 12-11-2023 End: 12-11-2023 ambulatory BRIANNA BENAVIDES Not Available Start: 12-06-2023 End: 12-06-[address] [facility] Start: 10-08-2023 End: 10-08-2023 ambulatory NIKITA CAMERON Facility:[facility] Start: 10-08-2023 End: 10-08-2023 ambulatory DO NIKITA CAMERON Facility:[facility] Start: 06-07-2023 End: 06-07-[address] [facility] Start: 05-29-2023 End: 05-29-2023 ambulatory [facility] Start: 04-09-2023 End: 04-09-2023 ambulatory Chucky Cantrell MD Facility:[facility] Start: 04-24-2022 ambulatory MD Edward GOODMAN Fac ility:[facility] Start: 11-26-2021 End: 11-27-[address] NIKITA CAMERON Facility: Start: 02-28-2021 ambulatory MD Edward GOODMAN Facil ity:[facility] Start: 02-28-2021 End: 03-01-2021 ambulatory MD Edward GOODMAN Facility:[facility] Start: 12-08-2020 End: 12-09-2020 ambulatory MAKENNA STAPLES Facility:[facility] Procedures Date Procedure Procedure Detail Performing Clinician Start: 12-11-2023 SKIN / NAIL BIOPSY Anton Benavides MD Work Phone: Plan of Treatment Date Care Activity Detail Author Start: 12-10-2024 End: 12-10-2024 Patient encounter procedure 12/10/2024 9:15 AM EDT Office Visit [facility] [address] [place] [id number] Brianna Benavides MD [address] [place] [address] [facility] Start: 12-11-2023 End: 12-11-2023 Patient encounter procedure 12/11/2023 9:50 AM EDT Office Visit [facility] [address] [place] [id number] Brianna Benavides MD [address] [place] [address] Arrived [facility] Comment on above: Arrived Start: 11-11-2023 Influenza vaccination Influenza Vaccine (#1) [facility] Start: 10-25-2018 Pneumococcal Vaccine: 65+ Years (2 of 2 - PPSV23 or PCV20) Pneumococcal Vaccine: 65+ Years (2 of 2 - PPSV23 or PCV20) [facility] Dermatopathology exam Dermatopat hology exam Pathology and Cytology Timed Neoplasm of unspecified behavior of bone, soft tissue, and skin Release Upon Ordering for 1 Occurrences starting 12/11/2023 [facility] Work Phone: Comment on above: Release Upon Ordering for 1 Occurrences starting 12/11/2023 Immunizations Immunization Date Immunization Notes Care Provider Fa cility 01-01-2023 influenza virus vacc ine, unspecified formulation Brianna Benavides MD Work Phone: [facility] Healthcare Payers Date Payer Category Payer Private Health Insurance [employer] A [employer]NA SENIOR SUPPLEMENT [id number] 2022-Present [address] [address] [place] [address] Supplement [id number] 2018 Medicare [id number] 2010 Medicare MEDICARE MEDICAR E RAILROAD [id number] 2010-Present [employer] MEDICARE [address] [address] [place] [address] Medicare [id number] 1959 Medicare [id number] 1959 Private Health Insurance [facility] [id number] 1945 Unknown [id number] .[id number] 1945 Unknown [id number] .[id number] 1945 Unknown [id number] .[id number] 1945 Unknown [id number] .[id number] 1945 Unknown [id number] .[id number] 1945 Unknown [id number] .[id number] 1945 Unknown [id number] .[id number] 1945 Unknown [id number] .[id number] 1945 Unknown [id number] Social History Date Type Detail Facility Start: 09-28-2022 Tobacco smoking stat [facility] Never smoked tobacco [facility] Start: 09-28-2022 Tobacco use and exposure Smoke less tobacco non-user [facility] Start: 10-12-2022 End: 12-11-2023 Alcoholic beverage intake Lifetime non-drinker (finding) [facility] Start: 09-28-2022 End: 12-11-2023 History of Social function [facility] Start: 09-28-2022 End: 12-11-2023 Tobacco use panel [facility] Start: 10-12-2022 Alcohol Comment caffeine: 1-2 cups per day, coffee [facility] Start: 1945 Sex assigned at Not on file [facility] History of Present illness Narrative 12-11-2023 Brianna Benavides MD - 12/11/2023 9:50 AM EDT Note Date & Type Note Facility 12-11-2023 History of Presen t illness Narrative Images from the original note were not included. Skin Check Location: Patient requests a skin examination from the waist up Dermatologic history: history of Actinic Keratosis Last visit: 09/28/2022 Established patient All pertinent medical history, medications, and allergies were reviewed. General Exam: alert , oriented to person, place, and time , normal affect, well appearing Unaccompanied A complete skin exam was offered, pt declined. Areas not examined despite medical recommendation: From the waist down Scalp, Examined Head, Face Examined Neck Examined Chest Examined Back Examined Abdomen Examined Right arm Examined Left arm Examined Hands Examined Digits,nails: Examined Denies dark streaks under finger nails Lymphatics: Not examined 1. Actinic keratosis Scalp Erythematous scaly papules Patient was counseled regarding these sun-induced growths that can develop into squamous cell carcinoma if left untreated. Discussed treatment options, including cryotherapy and topical preparations. It was emphasized that any treated lesions that fail to resolve should be re-evaluated. Patient elected for treatment with Efudex as this has become a chronic issue. Educated on Efudex treatment. Apply to Scalp twice a day for two weeks. Discussed that treated areas will become red, crusty, and inflamed. If areas become too uncomfortable, patient may use OTC hydrocortisone cream to help decrease irritation and can discontinue treatment early. Sun exposure should be avoided during treatment. Patient instructed to contact office for any questions or issues during treatment. Lesions that fail to resolve once treated area is healed should be re-evaluated in the office. Handout given to patient. fluorouracil (Efudex) 5 % cream - Scalp Apply to scalp x 14 days 2. Seborrheic keratosis Torso - Posterior (Back) Stuck on verrucous, damian-brown papules and plaques. Patient was counseled regarding these benign growths. Removal is normally not necessary, but they may be removed if they are symptomatic or for cosmetic reasons. 3. Lentigines Trunk Scattered damian macules in sun-exposed areas. The patient was informed that lentigines are benign pigmented lesions that occur on sun-exposed and sun-damaged skin. No treatment is necessary. Recommended regular use of broad spectrum sunscreen SPF 30 or higher 4. Neoplasm of unspecified behavior of bone, soft tissue, and skin Right Upper Arm Irregularly pigmented papule Lesion biopsy Type of biopsy: tangential Informed consent: discussed and consent obtained Informed consent comment: The risks and benefits of the biopsy were discussed. Risks include but are not limited to bleeding, infection, scarring, pain, and nerve damage. An opportunity to ask questions prior to the procedure was permitted and all questions were answered. Patient was prepped and draped in usual sterile fashion: area cleansed with alcohol. Anesthesia: the lesion was anesthetized in a standard fashion Anesthetic: 1% lidocaine w/ epinephrine 1-100,000 buffered w/ 8.4% NaHCO3 Instrument used: DermaBlade Hemostasis achieved with: electrodesiccation Outcome: patient tolerated procedure well Outcome comment: The specimen was placed in a prelabeled formalin container to be sent for pathology Post-procedure details: sterile dressing applied and wound care instructions given Post-procedure details comment: Emphasized need to contact clinic for any signs of infection, uncontrollable bleeding, or complications. Dressing type: bandage Additional details: Photo taken yes Amount of lidocaine used: 1 cc Specimen A - Dermatopathology exam Differential Diagnosis: atypical mole vs melanoma Check Margins: No Size of lesion: 0.7 x 0.4 cm Next Visit: 1 year, skin check documented in this encounter [facility] Progress note 12-06-2023 Note Date & Type Note Facility 12-06-2023 Note Cardiovascular Medic [facility] SUBJECTIVE No chief complaint on file. Sonal Elizondo is a 78 y.o. male here for follow-up. HPI PMHx: Afib, flutter s/p ablation, SSS s/p PPM, HTN He notes he is doing well, denies any cardiac complaints. His accompanied him. Denies c/o CP, dyspnea, orthopnea, PND, LE edema, dizziness/LH, palpitations, syncope. BP at home running 120s/70s. Patient Active Problem List Diagnosis Essential hypertension Atrial flutter (CMS/HCC) Pacemaker Persistent atrial fibrillation (CMS/HCC) Benign prostatic hyperplasia with urinary obstruction Former smoker High prostate specific antigen (PSA) Aortic root dilatation (CMS/HCC) SSS (sick sinus syndrome) (CMS/HCC) Paroxysmal atrial fibrillation (CMS/HCC) CAD in [place] artery Hx of Mobitz type II block Hyperlipidemia ILA (obstructive sleep apnea) Osteoarthritis Well adult exam No past medical history on file. Family History Problem Relation Name Age of Onset Hypertension Mother Hypertension Father Hypertension Sister Social History Tobacco Use Smoking status: Former Types: Cigarettes Smokeless tobacco: Never Substance Use Topics Alcohol use: Yes Comment: occasional Drug use: Never No Known Allergies ROS Cardiovascular: Negative. Hematologic/Lymphatic: Bruises/bleeds easily. All other systems reviewed and are negative. OBJECTIVE Visit Vitals Ht 1.854 m (6' 1 ) BMI 30.08 kg/m??? Smoking Status Former BSA 2.3 m??? Medications: Current Outpatient Medications: amLODIPine (Norvasc) 10 mg tablet, Take 1 tablet by mouth in the morning., Disp: , Rfl: atorvastatin (Lipitor) 10 mg tablet, Take 1 tablet by mouth in the morning., Disp: , Rfl: candesartan (Atacand) 8 mg tablet, Take 1 tablet (8 mg) by mouth in the morning and at bedtime. Replacing ramipril, Disp: 60 tablet, Rfl: 11 labetalol (Normodyne) 100 mg tablet, Take 1 tablet by mouth in the morning and at bedtime., Disp: , Rfl: Xarelto 20 mg tablet, TAKE 1 TABLET BY MOUTH IN THE MORNING, Disp: 90 tablet, Rfl: 3 Physical Exam Constitutional: Appearance: Normal appearance. He is normal weight. HENT: Head: Normocephalic and atraumatic. Right Ear: External ear normal. Left Ear: External ear normal. Eyes: Extraocular Movements: Extraocular movements intact. Pupils: Pupils are equal, round, and reactive to light. Neck: Vascular: No carotid bruit. Cardiovascular: Rate and Rhythm: Normal rate and regular rhythm. Pulses: Normal pulses. Heart sounds: Normal heart sounds. Pulmonary: Effort: Pulmonary effort is normal. Breath sounds: Normal breath sounds. Abdominal: General: Bowel sounds are normal. Palpations: Abdomen is soft. Musculoskeletal: General: Normal range of motion. Cervical back: Neck supple. Right lower leg: No edema. Left lower leg: No edema. Skin: General: Skin is warm and dry. Neurological: General: No focal deficit present. Mental Status: He is alert and oriented to person, place, and time. Psychiatric: Mood and Affect: Mood normal. Behavior: Behavior normal. Thought Content: Thought content normal. Judgment: Judgment normal. Labs: Ancillary Procedure on 11/28/2022 Component Date Value Ref Range Status BSA 12/01/2022 2.27 m2 Final No results found for: EXTCMP , BMPR1A , CBCDIF , BNP , LASAP , RED CBC - unremarkable Cr 1.01, BUN 20, K 4, Na 140, eGFR >60, AST 17, ALT 21 11/2021 CBC unremarkable Cr 1.09, BUN 18, K 4.2, Na 140, >60, AST 16, aLT 27 Chol 118, HDL 26, trig 145, LDL 63 Testing/Procedures: Device check 05/29/2023: no events, normal functioning device, RA 86% paced, RV 100% paced ECHO 12/28/2022 LV systolic function is normal, LVEF = 55-60% Mild diastolic dysfunction Normal RV size and systolic No significant valvular dysfunction Mildly elevated right-sided pressures, RVSP 43 Mildly dilated aortic root, measuring 4.2cm Device check 11/28/2022 RA pacing 85%, RV pacing 99%, no arrhythmia or mode switches noted 11/2020 Stress test 11/2020 No acute or reversible ischemia Diaphragm attenuation artifact vs moderate fixed perfusion defect of the inferior wall Mild left ventriculomegaly 12/[address] Foote ECHO 01/01/2020 Left Ventricle: Global left ventricular systolic function is normal. Right Ventricle: The right ventricle appears enlarged. Pericardium: Anterior free space is seen; effusion versus fat pad. Overall Conclusions: Limited echocardiogram to rule out effusion s/p ablation ECHO 10/18/2017 Global left ventricular systolic function is normal (Visually estimated EF 60%). The septum is abnormal in its motion; maybe due to pacemaker. A pacemaker wire is seen in the right atrium and right ventricle. The right atrium is mildly enlarged. No significant valvular abnormalities ASSESSMENT/PLAN: There are no diagnoses linked to this encounter. Essential hypertension (more content not included)... [facility] Progress note 12-06-2023 Note Date & Type Note Facility 12-06-2023 Note Patient here for 6 m o follow up hypertension, PAF/flutter, SSS s/p PPM, and CAD. At last apt in May 2023, ramipril was switched to candesartan. [facility] recent labs [facility]. He denies chest pain, SOB, and palpitations. Denies bleeding on Xarelto. Says BP was 146/83 earlier today when he checked it at home. Review of Systems Cardiovascular: Negative. Hematologic/Lymphatic: Bruises/bleeds easily. All other systems reviewed and are negative. [facility] Progress note 06-07-2023 Note Date & Type Note Facility 06-07-2023 Note Patient here for 6 m o follow up persistent afib, atrial flutter, and hypertension. Had an echo in Dec 2022 and a device interrogation last week. Denies chest pain, SOB, palpitations, lightheadedness/syncope, and bleeding on Xarelto. No recent labs. Review of Systems Cardiovascular: Negative. Hematologic/Lymphatic: Bruises/bleeds easily. All other systems reviewed and are negative. [facility] Progress note 06-07-2023 Note Date & Type Note Facility 06-07-2023 Note Cardiovascular Medic [facility] SUBJECTIVE Chief Complaint Patient presents with Hypertension Atrial Fibrillation Sonal Elizondo is a 77 y.o. male here for follow-up. HPI PMHx: Afib, flutter s/p ablation, SSS s/p PPM, HTN He states he is doing well. Hx ILA but he broke out in a rash wearing his CPAP machine so he hasn't used it for a couple months. Recommended he buy a nasal pad to help with this. Reviewed his most recent ECHO results. He is not interested in PFTs Denies c/o CP, dyspnea, orthopnea, PND, LE edema, dizziness/LH, palpitations, syncope. Patient Active Problem List Diagnosis Essential hypertension Atrial flutter (CMS/HCC) Pacemaker Persistent atrial fibrillation (CMS/HCC) Benign prostatic hyperplasia with urinary obstruction Former smoker High prostate specific antigen (PSA) Aortic root dilatation (CMS/HCC) SSS (sick sinus syndrome) (CMS/HCC) Paroxysmal atrial fibrillation (CMS/HCC) No past medical history on file. Family History Problem Relation Name Age of Onset Hypertension Mother Hypertension Father Hypertension Sister Social History Tobacco Use Smoking status: Former Types: Cigarettes Smokeless tobacco: Never Substance Use Topics Alcohol use: Yes Comment: occasional Drug use: Never No Known Allergies ROS Cardiovascular: Negative. Hematologic/Lymphatic: Bruises/bleeds easily. All other systems reviewed and are negative. OBJECTIVE Visit Vitals BP 150/90 (BP Location: Left arm, Patient Position: Sitting) Pulse 87 Ht 1.854 m (6' 1 ) Wt 103 kg (228 lb) SpO2 95% BMI 30.08 kg/m??? Smoking Status Former BSA 2.3 m??? Medications: Current Outpatient Medications: amLODIPine (Norvasc) 10 mg tablet, Take 1 tablet by mouth in the morning., Disp: , Rfl: atorvastatin (Lipitor) 10 mg tablet, Take 1 tablet by mouth in the morning., Disp: , Rfl: labetalol (Normodyne) 100 mg tablet, Take 1 tablet by mouth in the morning and at bedtime., Disp: , Rfl: rivaroxaban (Xarelto) 20 mg tablet, Take 1 tablet (20 mg) by mouth in the morning., Disp: 90 tablet, Rfl: 3 candesartan (Atacand) 8 mg tablet, Take 1 tablet (8 mg) by mouth in the morning and at bedtime. Replacing ramipril, Disp: 60 tablet, Rfl: 11 Physical Exam Constitutional: Appearance: Normal appearance. He is normal weight. HENT: Head: Normocephalic and atraumatic. Right Ear: External ear normal. Left Ear: External ear normal. Eyes: Extraocular Movements: Extraocular movements intact. Pupils: Pupils are equal, round, and reactive to light. Neck: Vascular: No carotid bruit. Cardiovascular: Rate and Rhythm: Normal rate and regular rhythm. Pulses: Normal pulses. Heart sounds: Normal heart sounds. Pulmonary: Effort: Pulmonary effort is normal. Breath sounds: Normal breath sounds. Abdominal: General: Bowel sounds are normal. Palpations: Abdomen is soft. Musculoskeletal: General: Normal range of motion. Cervical back: Neck supple. Right lower leg: No edema. Left lower leg: No edema. Skin: General: Skin is warm and dry. Neurological: General: No focal deficit present. Mental Status: He is alert and oriented to person, place, and time. Psychiatric: Mood and Affect: Mood normal. Behavior: Behavior normal. Thought Content: Thought content normal. Judgment: Judgment normal. Labs: Ancillary Procedure on 11/28/2022 Component Date Value Ref Range Status BSA 12/01/2022 2.27 m2 Final No results found for: EXTCMP , BMPR1A , CBCDIF , BNP , LASAP , RED 11/2021 CBC unremarkable Cr 1.09, BUN 18, K 4.2, Na 140, >60, AST 16, aLT 27 Chol 118, HDL 26, trig 145, LDL 63 Testing/Procedures: Device check 05/29/2023: no events, normal functioning device, RA 86% paced, RV 100% paced ECHO 12/28/2022 LV systolic function is normal, LVEF = 55-60% Mild diastolic dysfunction Normal RV size and systolic No significant valvular dysfunction Mildly elevated right-sided pressures, RVSP 43 Mildly dilated aortic root, measuring 4.2cm Device check 11/28/2022 RA pacing 85%, RV pacing 99%, no arrhythmia or mode switches noted 11/2020 Stress test 11/2020 No acute or reversible ischemia Diaphragm attenuation artifact vs moderate fixed perfusion defect of the inferior wall Mild left ventriculomegaly 12/[address] Foote ECHO 01/01/2020 Left Ventricle: Global left ventricular systolic function is normal. Right Ventricle: The right ventricle appears enlarged. Pericardium: Anterior free space is seen; effusion versus fat pad. Overall Conclusions: Limited echocardiogram to rule out effusion s/p ablation ECHO 10/18/2017 Global left ventricular systolic function is normal (Visually estimated EF 60%). The septum is abnormal in its motion; maybe due to pacemaker. A pacemaker wire is seen in the right atrium and right ventricle. The right atrium is mildly enlarged. No significant valvular abnormalities ASSESS (more content not included)... [facility] Evaluation note Note Date & Type Note Facility Evaluation note Diagnosis Seborrheic keratosis- Primary Actinic keratosis Lentigines Neoplasm of unspecified behavior of bone, soft tissue, and skin documented in this encounter [facility] Summary Purpose Family History No Family History Records FoundNo Family History Records FoundNo Family History Records FoundNo Family History Records FoundNo Family History Records FoundNo Family History Records Found Advance Directives No Advanced Directives Records FoundNo Advanced Directives Records FoundNo Advanced Directives Records FoundNo Advanced Directives Records FoundNo Advanced Directives Records FoundNo Advanced Directives Records Found Additional Source Comments (unrecognized sect ion and content) No Status Records FoundNo Status Records FoundNo Status Records FoundNo Status Records FoundNo Status Records FoundNo Status Records Found INFORMATION SOURCE (unrecogn ized section and content) DATE CREATED AUTHOR 12/31/2020 [facility] DATE CREATED AUTHOR AUTHOR'S ORGANIZ ATION 12/10/2021 [facility] DATE CREATED AUTHOR AUTHOR'S ORGANIZ ATION 02/02/2022 [facility] DATE CREATED AUTHOR AUTHOR'S ORGANIZ ATION 10/30/2023 [facility] DATE CREATED AUTHOR AUTHOR'S ORGANIZ ATION 12/11/[address] [facility] DATE CREATED AUTHOR AUTHOR'S ORGANIZ ATION 12/12/2023 [facility] EPIC Reason for Visit (unrecogniz ed section and content) Reason Comments Skin Check FOR RECORDS PERTAINING TO PATIENTS WHO ARE OR HAVE BEEN ENROLLED IN A CHEMICAL DEPENDENCY/SUBSTANCEABUSE PROGRAM, SOME INFORMATION MAY BE OMITTED. This clinical summary was aggregated from multiple sources. Caution should be exercised in using it in the provision of clinical care. This summary normalizes information from multiple sources, and as a consequence, information in this document may materially change the coding, format and clinical context of patient data. In addition, data may be omitted in some cases. CLINICAL DECISIONS SHOULD BE BASED ON THE PRIMARY CLINICAL RECORDS. [employer] provides no warranty or guarantee of the accuracy or completeness of information in this document.
--- NOTE | 2023-12-13 07:49 | CA_ITS ---
Patient Name: ABIODUN KEYES MR#: [id number] : 1945 Exam Date: 12/13/2023 Ordering Doctor: RUMA CABRERA CNP ECHOCARDIOGRAM REPORT PROCEDURE: CA ECHO DOPPLER COMPLETE INDICATIONS: Aortic aneurysm COMPARISON: None. DESCRIPTION: COMPLETE ECHOCARDIOGRAM Real-time transthoracic echocardiography with 2D, M-mode, spectral and color flow Doppler performed. QUALITY: Technical quality was good. BSA 2.25 m2 LEFT VENTRICLE: Normal chamber size. Moderate concentric left ventricular hypertrophy. Abnormal septal motion likely due to pacing. Global left ventricular systolic function is at the lower limits of normal. LV EF: Estimated left ventricular ejection fraction is 50%. DIASTOLIC: Grade I diastolic dysfunction. ATRIAL SEPTUM: LEFT ATRIUM: Moderate dilatation. RIGHT ATRIUM: Moderate dilatation. RIGHT VENTRICLE: Normal chamber size. Normal right ventricular systolic function. Pacer wire present. TRICUSPID VALVE: Normal mobility and thickness. No stenosis with mild regurgitation. Mild pulmonary hypertension. RVSP 35 mmHg MITRAL VALVE: Normal mobility and thickness. No evidence of mitral valve stenosis. There is no mitral annular calcification. Trivial mitral regurgitation. AORTIC VALVE: Normal trileaflet appearance. No visible sclerosis. Normal leaflet mobility. No evidence of aortic valve stenosis. No aortic regurgitation. AORTIC ROOT: Mild dilatation of the aortic root measuring 4.3 cm. The ascending aorta is normal in size measuring 3.2 cm. PULMONIC VALVE: Normal thickness and mobility. No stenosis. Trivial regurgitation. PERICARDIUM: No evidence of pericardial effusion. IVC: Collapses with inspirations. Normal size. PLEURA: CONCLUSION: 1. Moderate concentric left ventricular hypertrophy with low normal systolic function. Estimated LVEF is 50%. 2. Normal right ventricular size and systolic function. 3. Moderate biatrial dilatation. 4. Mild tricuspid regurgitation. 5. Mildly elevated right-sided pressures. 6. Mild dilatation of the aortic root measuring 4.3 cm. The ascending aorta is normal in size. Adult Echocardiography Procedure Report Left Ventricle LVEDD (3.7 - 5.6 cm): 5.09 cm LVESD (2.2 - 4.0 cm): 3.65 cm LVIVS thickness (0.6 - 1.2 cm): 1.57 cm LVPW thickness (0.5 - 1.0 cm): 1.35 cm e': 0.08 m/s E - e': 6.10 LVOT Max Gradient: 3.47 mm[Hg] LVOT Area (cm2): 0.93 m/s Peak Velocity (LVOT): 0.93 m/s Mean Velocity (LVOT): 0.62 m/s LVOT Diameter 2.41 cm Left Ventricular Ejection Fraction: 50 % Left Atrium LA Volume Index (2D A2C): 51.10 ml/m2 Left Atrium Systolic Dimension: 4.19 cm Mitral Valve MV E to A Ratio: 0.60 Mitral Valve A-Wave Peak Velocity: 0.87 m/s Mitral Valve E-Wave Peak Velocity: 0.52 m/s Right Ventricle RV Internal Diastolic Dimension: 3.79 cm Aorta AO Root Diam: 4.35 cm Ascending Ao Diam: 3.22 cm Aortic Valve AoV Area (Peak Ankit): 3.80 cm2, 3.97 cm2 AoV Area (VTI): 4.37 cm2, 5.16 cm2 Peak Velocity(Antegrade Flow): 1.07 m/s, 1.16 m/s Peak Gradient(Antegrade Flow): 4.54 mm[Hg], 5.42 mm[Hg] Mean Velocity(Antegrade Flow): 0.66 m/s, 0.86 m/s Mean Gradient(Antegrade Flow): 2.12 mm[Hg], 3.33 mm[Hg] Velocity Time Integral: 21.37 cm, 29.11 cm Tricuspid Valve Peak Velocity (Regurgitant Flow): 2.83 m/s, 2.84 m/s, 2.76 m/s Pulmonic Valve Mean Gradient: 1.52 mm[Hg], 1.65 mm[Hg] Mean Velocity: 0.57 m/s, 0.61 m/s Peak Velocity: 0.91 m/s Peak Gradient: 3.46 mm[Hg], 3.22 mm[Hg] Right Atrium Right Atrium Systolic Pressure: 108.72 ml, 108.72 ml Dictated by: Topher Lucas M.D. on 12/13/2023 at 16:57 Approved by: Topher Lucas M.D. on 12/13/2023 at 17:55
== END 2023-12-13 07:46 | disposition home or self-care (01) ==
LOC: CARD 07:46
PROVIDERS: PCP Family Medicine; Visit Provider Nurse Practitioner Family
DX: I71.21 Aneurysm of the ascending aorta, without rupture (principal)
CPT/HCPCS: 93306; 93356